=== PATIENT | female | born 1960 | race Caucasian/White ===

== ENCOUNTER 2016-08-14 09:33 | Day surgery (SDC) | payer BC ==
[~2016-08-14 09:33] MED LIST: DARVOCET-N6 EACH/PAK PO; DIAZEPAM5 MG PO; HYDROCODONE 7.51 TAB PO; KEFLEX 500MG.500 MG PO; LEVAQUIN500 MG PO; PERCOCET 650 MG1 TAB PO; PHENERGAN 25MG.25 M1 PO; VIBRAMYCIN 100100 MG PO
[2016-08-14 13:52] VITALS: BP 106/66
--- NOTE | 2016-09-04 13:32 | Operative Note ---
Endoscopy Report Date: 08/14/16 Preoperative diagnosis: Dysphagia, gastroesophageal reflux Procedure Type of procedure: Esophagogastroduodenoscopy with biopsies Indications: Patient is a 56-year-old white female who was sent for surgical consultation by Dr. Turner for possible upper endoscopy. Interestingly, the patient previously had a pneumothorax which required chest tube placement. This was for trauma. She has a long-standing history of cough and symptoms of dyspepsia and reflux. She is symptomatically dependent on proton pump inhibitors and does have some symptoms of regurgitation and "stranglehold" sensation. She did have a previous episode classically consistent with esophageal food impaction which resolved after 16 hours. She had an upper gastrointestinal series which revealed small hiatal hernia. Consent was obtained and patient was taken to same-day surgery endoscopy procedure room. She is positioned in a lateral decubitus position. Adequate intravenous sedation was achieved. Olympus endoscope was inserted via the oropharynx and advanced to the esophagus which appeared grossly normal. At the gastroesophageal junction there was a very faint beginnings of a Schatzki's ring without luminal compromise. Stomach was cannulated and insufflated. Retroflexion was performed which revealed a very small hiatal hernia. Gastric antral mucosal biopsy was obtained for CLOtest for H. pylori. Duodenal bulb and duodenal sweep were normal. A couple biopsies were obtained within the duodenum. Several biopsies were obtained of the gastroesophageal junction to assess for Han's. There are no indications for dilatation as there was no appreciable luminal compromise of the gastroesophageal junction, only some mild inflammation. A couple biopsies were obtained at the did esophagus to rule out microscopic esophagitis. Findings: Very small hiatal hernia Recommendations: Follow-up on the histopathology and CLOtest. Continue proton pump inhibitors. at [id number]
== END 2016-08-14 11:05 | disposition home or self-care (01) ==
LOC: SDC 09:33
PROVIDERS: Surgery
PROC: 0DB68ZX Excision of Stomach, Via Natural or Artificial Opening Endoscopic, Diagnostic (ICD-10-PCS; 2016-08-14)
PROC: 0DB38ZX Excision of Lower Esophagus, Via Natural or Artificial Opening Endoscopic, Diagnostic (ICD-10-PCS; 2016-08-14)
PROC: 0DB48ZX Excision of Esophagogastric Junction, Via Natural or Artificial Opening Endoscopic, Diagnostic (ICD-10-PCS; principal; 2016-08-14 10:30)
DX: K21.9 Gastro-esophageal reflux disease without esophagitis (principal); R10.13 Epigastric pain; K44.9 Diaphragmatic hernia without obstruction or gangrene; K22.2 Esophageal obstruction

== ENCOUNTER 2017-07-02 08:41 | Day surgery (SDC) | payer BC ==
[~2017-07-02] VITALS: Ht 162.6 cm; Wt 81.6 kg
--- NOTE | 2017-07-02 10:18 | Operative Note ---
Endoscopy Report Date: 07/02/17 Preoperative diagnosis: Rectal bleeding, screening colonoscopy Procedure Type of procedure: Total colonoscopy to terminal ileum with multiple snare polypectomy Indications: Patient is a 56-year-old white female. She is referred by [facility] for colonoscopy. She's never had prior colonoscopy. She states that she does have an external hemorrhoid but she has had for quite some time. However, several weeks ago she developed what she describes a significant rectal bleeding. She states that this was not coming from her hemorrhoid. She denied pain. She attributes this to possibly addition of Seroquel and Zoloft to her medication regimen. She stopped the Seroquel and has had the bleeding ceased. She denies any family history of colon cancer. However, she does have family history of Crohn's disease in her sister. She's never had prior colonoscopy. Consent was obtained and patient was taken to same-day surgery endoscopy procedure room. She was positioned in a lateral decubitus position. Adequate intravenous sedation was achieved with anesthesia titration of propofol. Variable stiffness Olympus colonoscope was inserted via the anus and advanced to the cecum without difficulty. Ileocecal valve and appendiceal orifice were clearly identified. Colonoscope was advanced a short distance into the terminal ileum which was grossly normal. In the ascending colon there was a moderately large polyp which was removed with hot snare. This required retrieval in a piecemeal fashion using the Tsai net. In the sigmoid colon there were several small polyps encountered. These were removed mostly using cold snare with minimal use of hot snare. In the rectum there was a small polyp removed with cold snare. Retroflexion within the rectum revealed internal hemorrhoids which appeared to be nonbleeding. Colonoscope was withdrawn. Findings 1. Polyp 2. Internal Hemorrhoids Follow-Up Follow-Up: Patient did have some internal and external hemorrhoids and this was likely the source of her self-limited rectal bleeding. She had at least 6 polyps removed. Pending the pathology likely plan for repeat colonoscopy 3-5 years. at [id number]
[2017-07-02 11:03] VITALS: BP 131/80
== END 2017-07-02 10:47 | disposition home or self-care (01) ==
LOC: SDC 08:41
PROVIDERS: Surgery
PROC: 0DBN8ZX Excision of Sigmoid Colon, Via Natural or Artificial Opening Endoscopic, Diagnostic (ICD-10-PCS; 2017-07-02)
PROC: 0DBP8ZX Excision of Rectum, Via Natural or Artificial Opening Endoscopic, Diagnostic (ICD-10-PCS; 2017-07-02)
PROC: 0DBK8ZX Excision of Ascending Colon, Via Natural or Artificial Opening Endoscopic, Diagnostic (ICD-10-PCS; principal; 2017-07-02 09:00)
DX: Z12.11 Encounter for screening for malignant neoplasm of colon (principal); K63.5 Polyp of colon; K62.1 Rectal polyp; K64.8 Other hemorrhoids